=== PATIENT | male | born 1940 | race Asian ===

== ENCOUNTER → 2016-12-08 | Outpatient (CLI) | payer MEDICARE, OTHER ==
[2016-12-08 10:02] LABS: ALBUMIN 3.7 g/dL (3.4-5.0); BILIRUBIN,TOTAL 0.6 mg/dL (0.1-1.0); CALCIUM, TOTAL 8.8 mg/dL (8.8-10.5); CHOL/HDL RATIO 2.3 (4.2-7.3); CREATININE 1.63 mg/dL (0.60-1.30); POTASSIUM 4.6 mmol/L (3.5-5.1); TOTAL PROTEIN, SERUM 7.9 g/dL (6.4-8.2)
== END | disposition home or self-care (01) ==
LOC: LABPV 07:51
PROVIDERS: ATTEND Internal Medicine Nephrology
DX: I12.9 Hypertensive chronic kidney disease with stage 1 through stage 4 chronic kidney disease, or unspecified chronic kidney disease (principal); N18.3 Chronic kidney disease, stage 3 (moderate); M10.9 Gout, unspecified
CPT/HCPCS: 82306; 82570; 84156

== ENCOUNTER → 2017-01-17 | Outpatient (CLI) | payer MEDICARE, OTHER ==
[2017-01-17 11:22] LABS: CALCIUM, TOTAL 8.5 mg/dL (8.8-10.5); CREATININE 1.73 mg/dL (0.60-1.30); PHOSPHORUS 3.7 mg/dL (2.5-4.9); POTASSIUM 3.9 mmol/L (3.5-5.1)
[2017-01-20 09:55] LABS: APPEARANCE,URINE CLEAR (CLEAR); GLUCOSE, URINE (UA) NEGATIVE (NEGATIVE); KETONES,URINE NEGATIVE (NEGATIVE); LEUKOCYTE ESTERASE ,URINE NEGATIVE (NEGATIVE); OCCULT BLOOD,URINE NEGATIVE (NEGATIVE); PH,URINE 5.5 (5.0-8.0); PROTEIN,URINE SEE CONFIRM (NEGATIVE)
[2017-01-20 10:18] LABS: ADD UA MICROSCOPIC YES
[2017-01-20 10:19] LABS: RBC,URINE None Seen /HPF (0-2); SULFOSALICYLIC ACID,URINE 3+ (Negative)
[2017-01-20 10:21] LABS: WBC,URINE 0-2 /HPF (0-5)
[2017-01-20 10:22] LABS: HYALINE CASTS, URINE 0-2 /LPF (None Seen); SQUAMOUS EPITHELIAL CELL,UR Rare /LPF (None Seen)
== END | disposition home or self-care (01) ==
LOC: LABPV 08:04
PROVIDERS: ATTEND Internal Medicine Nephrology
DX: I12.9 Hypertensive chronic kidney disease with stage 1 through stage 4 chronic kidney disease, or unspecified chronic kidney disease (principal); N18.9 Chronic kidney disease, unspecified; I25.10 Atherosclerotic heart disease of native coronary artery without angina pectoris; M10.9 Gout, unspecified
CPT/HCPCS: 81050; 82575; 83970; 84100; 84156; 84300

== ENCOUNTER → 2020-05-02 | Outpatient (CLI) | payer MEDICARE, OTHER ==
[2020-05-02 12:23] LABS: CALCIUM, TOTAL 9.3 mg/dL (8.8-10.5); CREATININE 2.48 mg/dL (0.60-1.30); POTASSIUM 4.1 mmol/L (3.5-5.1)
== END | disposition home or self-care (01) ==
LOC: LABPV 09:52
PROVIDERS: ATTEND Internal Medicine Interventional Cardiology
DX: I50.9 Heart failure, unspecified (principal); I25.10 Atherosclerotic heart disease of native coronary artery without angina pectoris; N18.9 Chronic kidney disease, unspecified

== ENCOUNTER 2021-07-22 09:44 | Inpatient (IN) | payer MEDICARE, OTHER ==
[2021-07-21 10:24] LABS: COVID AG,FIA SOURCE NASOPHARYNGEAL
[2021-07-21 10:36] LABS: BASOPHILS % (AUTO) 0.6 % (0.0-2.0); EOSINOPHILS % (AUTO) 1.3 % (1.0-6.0); HEMATOCRIT 36.6 % (41-53); HEMOGLOBIN 11.8 g/dL (13.5-17.5); LYMPHOCYTES # (AUTO) 1.5 K/uL (1.0-4.8); LYMPHOCYTES % (AUTO) 21.6 % (22.0-44.0); MEAN CORPUSCULAR HEMOGLOBIN 29.6 pg (26.0-34.0); MEAN CORPUSCULAR HGB CONC 32.2 G/dL (31.0-37.0); MEAN CORPUSCULAR VOLUME 92 fL (80-100); MONOCYTES # (AUTO) 0.5 K/uL (0.1-1.0); MONOCYTES % (AUTO) 7.6 % (2.0-9.0); NEUTROPHILS # (AUTO) 4.7 K/uL (1.8-7.7); NEUTROPHILS % (AUTO) 68.9 % (40.0-70.0); PLATELET COUNT (AUTO) 239 K/uL (150-450); RED BLOOD CELL COUNT(AUTO) 3.98 MIL/uL (4.50-5.90); RED CELL DISTRIBUTION WIDTH 15.1 % (11.5-14.5)
[2021-07-21 10:43] LABS: CALCIUM, TOTAL 8.6 mg/dL (8.8-10.5); CREATININE 5.39 mg/dL (0.60-1.30); POTASSIUM 4.1 mmol/L (3.5-5.1)
[2021-07-21 10:48] LABS: PROTHROMBIN TIME 10.3 SEC (9.4-11.6)
[~2021-07-22] VITALS: Ht 170.2 cm; Wt 70.4 kg
[~2021-07-22 09:44] MED LIST: ASPI-1450 PO; ATOR20TA86 PO; B CO1CAP6 PO; CLOP75TA60 PO; SEVE800T17 PO
[2021-07-22] MEDS ORDERED: SODIUM CHLORIDE 0.9% 1,000 ML ONE (09:50)
[2021-07-22] MEDS ORDERED: DiphenhydrAMINE HCL 50 MG/ML VIAL ONE (09:51)
[2021-07-22] MEDS ORDERED: ASPIRIN 325 MG TABLET ONE (09:51)
[2021-07-22] MEDS ORDERED: SODIUM CHLORIDE 0.9% 1,000 ML IV SCH (10:00)
[2021-07-22] MEDS ORDERED: ASPIRIN 325 MG TABLET PO SCH (11:00)
[2021-07-22] MEDS ORDERED: DiphenhydrAMINE HCL 50 MG/ML VIAL IVP ONE (11:00)
[2021-07-22] MEDS ORDERED: HEPARIN SODIUM 1000 UNITS/NS 1,000 ML ONE (11:57)
[2021-07-22] MEDS ORDERED: IOHEXOL 300 MG/ML 100 ML VIAL ONE (11:57)
[2021-07-22] MEDS ORDERED: LIDOCAINE/PF 1% 30 ML VIAL ONE (11:57)
[2021-07-22] MEDS ORDERED: IOHEXOL 300 MG/ML 50 ML VIAL ONE (11:57)
[2021-07-22] MEDS ORDERED: SODIUM BICARBONATE 50 MEQ/50 ML VIAL ONE (11:57)
[2021-07-22] MEDS ORDERED: IOHEXOL 300 MG/ML 150 ML VIAL ONE (11:57)
[2021-07-22 12:48] VITALS: BP 191/83
[2021-07-22] MEDS ORDERED: FentaNYL CITRATE PF 100 MCG/2 ML VIAL ONE (13:27)
[2021-07-22] MEDS ORDERED: MIDAZOLAM HCL 2 MG/2 ML VIAL ONE (13:27)
[2021-07-22] MEDS ORDERED: HEPARIN SODIUM 1000 UNITS/NS 1,000 ML IARTER ONE (13:45)
[2021-07-22] MEDS ORDERED: MIDAZOLAM HCL 2 MG/2 ML VIAL IVP ONE (13:45)
[2021-07-22] MEDS ORDERED: FentaNYL CITRATE PF 100 MCG/2 ML VIAL IVP ONE (13:45)
[2021-07-22] MEDS ORDERED: LIDOCAINE 1% 30 ML/SOD BICARB 8.4% 4 ML SQ ONE (13:45)
[2021-07-22] MEDS ORDERED: IOHEXOL 300 MG/ML 150 ML VIAL IARTER ONE (13:45)
[2021-07-22 14:22] VITALS: BP 195/86
[2021-07-22] MEDS ORDERED: ATORVASTATIN CALCIUM 40 MG TABLET PO SCH (21:00)
== END 2021-07-22 18:00 | disposition home or self-care (01) | DRG 299 ==
LOC: 6N 09:44
PROVIDERS: ADMIT Internal Medicine Interventional Cardiology; ATTEND Internal Medicine Interventional Cardiology
PROC: B41G1ZZ Fluoroscopy of Left Lower Extremity Arteries using Low Osmolar Contrast (ICD-10-PCS; principal; 2021-07-22)
PROC: B41F1ZZ Fluoroscopy of Right Lower Extremity Arteries using Low Osmolar Contrast (ICD-10-PCS; 2021-07-22)
DX: I70.212 Atherosclerosis of native arteries of extremities with intermittent claudication, left leg (principal); N18.6 End stage renal disease; I25.10 Atherosclerotic heart disease of native coronary artery without angina pectoris
CPT/HCPCS: 36200; 75630; 75716; 80048; 85025; 85610; 85730; 93005; J1200; J1644; J2250; J3010; J3490; J7030; Q9967